=== PATIENT | female | born 1945 | race American Indian/Alaskan Native ===

== ENCOUNTER 2021-11-23 06:24 | Day surgery (SDC) | payer MEDICARE ==
[2021-11-22 12:02] LABS: Alanine Aminotransferase 16 units/L (7-56); Albumin 3.8 g/dL (3.9-5); BUN/Creatinine Ratio 20; Blood Urea Nitrogen 18 mg/dL (7-17); Hemolysis Index 10
[2021-11-22 12:09] LABS: Hematocrit 34.3 % (30.3-42.9); Hemoglobin 11.3 gm/dl (10.1-14.3); Mean Corpuscular HGB Conc 33 % (30-34); Mean Corpuscular Volume 88 fl (79-97); Platelet Count 122 K/mm3 (140-440); Red Blood Count 3.89 M/mm3 (3.65-5.03); Red Cell Distribution Width 13.9 % (13.2-15.2)
--- NOTE | 2021-11-22 13:07 | Anesthesia Consultation ---
Anesthesia Consult and Med Hx Date of service: 11/23/21 - Airway Anesthetic Teeth Evaluation: Dentures (upper and lower) ROM Head & Neck: Adequate Mental/Hyoid Distance: Adequate Mallampati Class: Class I Intubation Access Assessment: Good - Pulmonary Exam CTA: Yes - Cardiac Exam Cardiac Exam: RRR - Pre-Operative Health Status ASA Pre-Surgery Classification: ASA3 Proposed Anesthetic Plan: General - Pulmonary Hx Smoking: No Hx Asthma: Yes (seasonal w/ rare inhaler use; none recent) Hx Respiratory Symptoms: No - Cardiovascular System Hx Hypertension: Yes Hx Heart Attack/AMI: No Hx Percutaneous Transluminal Coronary Angioplasty (PTCA): No Hx Cardia Arrhythmia: No Hx Peripheral Vascular Disease: No (hx DVT/PE on eliquis (last dose 4 days ago)) - Central Nervous System Hx Neuromuscular Disorder: No (neuropathy) CVA: No - Gastrointestinal Hx Ulcer: Yes - Endocrine Hx Renal Disease: No Hx Liver Disease: No Hx Insulin Dependent Diabetes: No Hx Non-Insulin Dependent Diabetes: No Hx Thyroid Disease: No - Other Systems Hx Cancer: Yes (hx breast ca s/p chemo,xrt, b/l mastectomy) - Additional Comments Anesthesia Medical History Comments: Hx SLE on chronic prednisone and plaquenil. Denies hx renal involvement. No hx anesthetic complications.
[~2021-11-23 06:24] MED LIST: LACTATED RINGERS 1,000 ML IV SCH
[2021-11-23] MEDS ORDERED: ONDANSETRON 4 MG/2 ML INJ ONE (07:43)
[2021-11-23] MEDS ORDERED: LIDOCAINE MPF (2%) 20 MG/1 ML VIAL 5 ML ONE (07:43)
[2021-11-23] MEDS ORDERED: propofoL 200 MG/20 ML VIAL IV ONE (07:44)
[2021-11-23] MEDS ORDERED: fentaNYL 100 MCG/2 ML INJ ONE (07:44)
--- NOTE | 2021-11-23 08:01 | Anesthesia Day of Surgery ---
Anesthesia Day of Surgery - Day of Surgery Patient Examined: Yes Patient H&P Reviewed: Yes Patient is NPO: Yes
[2021-11-23] MEDS ORDERED: HYDROcodone/ACETAMINOPHEN 5-325 MG TAB PO PRN (08:02)
[2021-11-23] MEDS ORDERED: HYDROmorphone 0.5 MG/0.5 ML INJ IV PRN (08:02)
[2021-11-23] MEDS ORDERED: GENTAMICIN/NS 80 MG/100 ML 100 ML IV ONE (08:24)
--- NOTE | 2021-11-23 08:55 | Post Operative Note ---
Pre-op diagnosis: hematuria Post-op diagnosis: same Findings: delicate vascularity Procedure: cysto rpgs bx Anesthesia: GETA Surgeon: SHERRI JACOB Estimated blood loss: none Pathology: list (bladder urine) Specimen disposition: to lab Condition: stable Disposition: PACU
--- NOTE | 2021-11-23 08:57 | Discharge Summary ---
Short Stay Discharge Plan Activity: other (no straining ) Weight Bearing Status: Full Weight Bearing Diet: low fat, low cholesterol Special Instructions: other (inc fluids ) Follow up with: SHAWNA MEADOWS MD [Primary Care Provider] - 7 Days SHERRI JACOB MD [Staff Physician] - 14 Days
[2021-11-23] MEDS ORDERED: IOHEXOL 300 MG/ML 50ML IV ONE (08:59)
[2021-11-23] MEDS ORDERED: WATER FOR IRRIG STERILE 2000 ML IR ONE (08:59)
--- NOTE | 2021-11-23 09:17 | Fluoroscopy Report ---
FLUOROSCOPY RETROGRADE UROGRAPHY INDICATION: MICROSCOPIC HEMATURIA. COMPARISON: None. IMPRESSION: 40 seconds of fluoroscopy time was provided by radiology during retrograde urography by the urologist. 6 fluoroscopic images are presented. No obvious filling defect or abnormal dilatation is demonstrated. Bladder biopsies were performed per the operative notes. Signer Name: Sarbjit Kaufman Jr, MD Signed: 11/23/2021 9:13 AM Workstation Name: [id number]
--- NOTE | 2021-11-23 09:29 | Operative Report ---
DATE OF SURGERY: 11/23/2021 PREOPERATIVE DIAGNOSES: Hematuria, history of breast cancer. POSTOPERATIVE DIAGNOSES: Hematuria, history of breast cancer with increased vascularity along the bladder and some very delicate infundibulum with stones in the right lower pole. PROCEDURES: Cystoscopy, retrograde, random bladder biopsies. SURGEON: Taran Yusuf MD ANESTHESIA: General. FINDINGS: This is a woman who has some hematuria. She has a history of breast cancer, previous chemotherapy. She now presents for treatment. DESCRIPTION OF PROCEDURE: The patient was brought to the operating room and placed on the operating table. Following induction of anesthesia, placed in lithotomy position, prepped and draped in usual sterile fashion. Cystourethroscopy showed a very delicate vascularity. Retrograde showed what appeared to be stones in the right lower pole shital, very delicate calices, even the upper pole calices, especially on the left was delicate. There was no caliectasis, little bit malformed kidney. The patient tolerated the procedure well. No persistent filling defects noted except at the right lower pole, which were stones. Random biopsies were done. This was cauterized. The patient was brought to recovery in stable condition. TID: [id number] RECEIPT: [id number] KEISHA/GILBERT
[2021-11-23 10:40] VITALS: BP 152/72
--- NOTE | 2021-11-23 11:30 | Post Anesthesia Evaluation ---
- Post Anesthesia Evaluation Patient Participated: Yes Airway Patent: Yes Stable Respiratory Function: Yes Nausea/Vomiting: No Temp > 96.8F: Yes Pain Manageable: Yes Adequeate Hydration: Yes Anesthesia Complications: No
== END 2021-11-23 10:20 | disposition home or self-care (01) ==
LOC: OR 06:24 → EDSEX 08:00 → OR 10:20
PROVIDERS: ATTEND Urology
DX: R31.29 Other microscopic hematuria (principal); N21.0 Calculus in bladder; G62.9 Polyneuropathy, unspecified; E78.00 Pure hypercholesterolemia, unspecified; J45.909 Unspecified asthma, uncomplicated; K21.9 Gastro-esophageal reflux disease without esophagitis; D64.9 Anemia, unspecified; Z20.822 Contact with and (suspected) exposure to COVID-19; Z91.012 Allergy to eggs; Z85.3 Personal history of malignant neoplasm of breast; Z91.011 Allergy to milk products; Z88.0 Allergy status to penicillin; Z91.013 Allergy to seafood; Z88.8 Allergy status to other drugs, medicaments and biological substances; Z79.899 Other long term (current) drug therapy; Z98.42 Cataract extraction status, left eye; Z86.711 Personal history of pulmonary embolism; Z98.890 Other specified postprocedural states; Z90.13 Acquired absence of bilateral breasts and nipples
CPT/HCPCS: 36415; 52204; 74420; 80053; 85027; 88305; J1580; J2405; J2704; J3010; J7120; Q9967; U0003